=== PATIENT | male | born 2000 | race Caucasian/White ===

== ENCOUNTER 2021-02-07 23:00 | Emergency (ER) | payer OTHER ==
[~2021-02-07] VITALS: Ht 188 cm; Wt 85.5 kg
--- NOTE | 2021-02-07 23:33 | PHYS DOC ---
Adult General Chief Complaint Chief Complaint: HEAD INJURY/TRAUMA HPI HPI Patient is an otherwise healthy 20-year-old male, in the who presents after a fall. States that yesterday he was carrying an 85 pound pack, exercising when he fell forward striking the left side of his head. Denies any loss of consciousness, neck pain, chest pain, shortness of breath, abdominal pain, vomiting. States that right after he did it he did have mild blurry vision for a little bit which is now resolved and has had intermittent nausea but no vomiting. Denies any numbness/weakness/tingling. Denies any trouble ambulating. States he is making urine and stool normally for him. States he c zheng in because his superior officer wanted to get checked out. Review of Systems Review of Systems Review of systems otherwise unremarkable except noted in HPI Physical Exam Physical Exam Constitutional: Well developed, well nourished, no acute distress, non-toxic appearance. [] HENT: Has an abrasion on parietal scalp, scabbed over, bilateral external ears normal, oropharynx moist, no oral exudates, nose normal, no hemotympanums. [] Eyes: PERRLA, EOMI, conjunctiva normal, no discharge. [] Neck: Normal range of motion, no midline tenderness, deformities, bruising, but does have some trapezius tenderness/aching bilaterally, supple, no stridor. [] Cardiovascular:Heart rate regular rhythm, no murmur [] Lungs & Thorax: Bilateral breath sounds clear to auscultation [] Abdomen: soft, no tenderness, no masses, no pulsatile masses. [] Skin: Warm, dry, no erythema, no rash. [] Back: No midline tenderness throughout the length of the spine, no deformities, no step-offs, no bruising. Has some paraspinal muscle soreness, bilaterally just underneath scapula bilaterally with no notable bruising or pain at the scapula. Range of motion intact. Neurovascular exam intact in extremities. Neurologic: Alert and oriented X 3, normal motor function, normal sensory function, able to ambulate without issue, cranial nerves intact, no focal deficits noted. [] Psychologic: Affect normal, judgement normal, mood normal. [] EKG EKG [] Radiology/Procedures Radiology/Procedures Imaging with no acute osseous abnormalities [] Heart Score C/O Chest Pain: No Risk Factors: Risk Factors: DM, Current or recent (<one month) smoker, HTN, HLP, family history of CAD, obesity. Risk Scores: Risk Factors: DM, Current or recent (<one month) smoker, HTN, HLP, family history of CAD, obesity. Course & Med Decision Making Course & Med Decision Making Patient is a 20-year-old male who presents after falling and hitting his head Vital signs not concerning. Physical exam noted above. Patient up-to-date on tetanus. Given Tylenol, ibuprofen and ice pack. Imaging with no acute osseous abnormalities. Given pain management recommendations for home. Patient given verbal and written concussion precautions. Advised to follow-up first thing Wednesday with primary care physician to discuss ED visit and set up a follow-up. Gave strict return precautions to the ED. Patient grateful, verbalized understanding and agreed with plan of discharge. Dragon Disclaimer Dragon Disclaimer This electronic medical record was generated, in whole or in part, using a voice recognition dictation system. Departure Departure: Impression: Primary Impression: Concussion Disposition: HOME / SELF CARE / HOMELESS Condition: GOOD Referrals: PCP,UNKNOWN (PCP) REAGAN RITCHIE MD Patient Instructions: Concussion and Brain Injury, Concussion-SportsMed Additional Instructions: Please read all the attached information carefully. You can continue to use Tylenol, ibuprofen and ice as discussed. Please follow-up with your primary care physician as soon as you can to update on ED visit and set up a follow-up as needed. Please come back to the ED immediately with new or concerning symptoms as discussed. TARA RICH MD Feb 07, 2021 23:33
[2021-02-07] MEDS ORDERED: IBUPROFEN 600 MG TABLET. PO ONE (23:49)
--- NOTE | 2021-02-07 23:59 | RAD ---
STUDY: CT head without contrast INDICATION: Fall. Scalp abrasion on the left. COMPARISON: None. TECHNIQUE: Axial CT imaging through the head without the use of intravenous contrast. Sagittal and co leonardo reformats were obtained. One or more of the following individualized dose reduction techniques were utilized for this examinat ion: 1. Automated exposure control 2. Adjustment of the mA and/or kV according to patient size 3. Use of iterative reconstruction technique. FINDINGS: No acute intracranial hemorrhage. No mass effect, midline shift or hydrocephalus. Zapata-white matter d ifferentiation is maintained. Unremarkable calvarium. No layering fluid seen within the visualized paranasal sinuses. Unremarkable mastoid air cells and middle ears. IMPRESSION: No acute intracranial abnormality by CT. Electronically signed by: LIU ISAAC MD (02/07/2021 11:57 PM) [facility]
[2021-02-08] MEDS ORDERED: IBUPROFEN 600 MG TABLET. PO ONE
[2021-02-08] MEDS ORDERED: ACETAMINOPHEN 500 MG TABLET PO ONE
[2021-02-08 00:20] VITALS: BP 128/67
== END 2021-02-08 00:15 | disposition home or self-care (01) ==
LOC: ER 23:00
DX: S06.0X9A Concussion with loss of consciousness of unspecified duration, initial encounter (principal); W18.09XA Striking against other object with subsequent fall, initial encounter; Y93.89 Activity, other specified; Y92.89 Other specified places as the place of occurrence of the external cause; Y99.8 Other external cause status
CPT/HCPCS: 70450; 99284